=== PATIENT | male | born 1940 | race Caucasian/White ===

== ENCOUNTER 2018-02-09 08:26 | Emergency (ER) | END 2018-02-09 12:30 | disposition home or self-care (01) ==

== ENCOUNTER 2018-05-15 12:47 | Day surgery (SDC) | END 2018-05-15 18:33 ==

== ENCOUNTER 2018-07-22 16:43 | Inpatient (IN) | payer OTHER ==
[~2018-07-22] VITALS: Ht 180.3 cm; Wt 84.8 kg
[~2018-07-22 16:43] MED LIST: ACET325S GTB; ALLO300T2 GTB; AMIO200T4 GTB; ATOR40TA68 GTB; CARAS GTB; DIL4I IV; EPO10ESRD SC; INSU100V3 IJ; LANS30CA47 GTB; LEVA1.25 INHALATION; NYST1POW22 TOPICAL; ONDA4SOL IV*; POTA20LI15 GTB; SACC250C GTB; TAMS0.4C2 GTB; THEO80EL4 GTB; VORI200T9 GTB; [UNRECOGNIZED DRUG - CODE] TP
[2018-07-22] MEDS ORDERED: ALBUTEROL 0.5% (NEB) 2.5 MG/0.5 ML AMP INH STA (17:40)
[2018-07-22] MEDS ORDERED: VANCOMYCIN 1 GM (PMX) 250 ML IVPB STA (18:35)
[2018-07-22] MEDS ORDERED: CEFEPIME 1GM/50 ML (PMX) 50 ML IVPB STA (18:35)
--- NOTE | 2018-07-22 19:51 | ERD ---
ER Documentation Chief Complaint Chief Complaint PT SENT FROM [facility] FOR LAB WORK. HPI This is a 77-year-old male sent from [facility] for lab work. Apparently, the patient has an elevated white blood count there today of 15.8 with a left- sided pleural effusion that the doctor there wants sent here for workup, admiss ion, drainage of pleural fluid. Patient tells me does not know why he is here other than having a high white blood count. The patient has a tracheostomy with COPD with multiple episodes of pneumonia. He says he has had a chronic cough that does not seem to be much worse. No chills or fevers that he knows of. No shortness of breath. No chest pain.. The is here now and states that he said 2 days where he has had bizarre behavior of hallucinations lasting about a minute or 2 with bizarre behavior, then he returns to normal baseline ROS All systems reviewed and are negative except as per history of present illness. Medications Home Meds Reported Medications Insulin Regular, Human (Humulin R) 100 Unit/1 Ml Vial, 0 IJ Q6, VIAL 0-120 = 0 UNITS 121-150 = 0 UNITS 151-200 = 2 UNITS 201-250 = 4 UNITS 251-300 = 6 UNITS 301-350 = 8 UNITS 351-400 =10 UNITS ABOVE 400 GIVE 12 UNITS AND CALL 05/15/18 Hydromorphone Hcl* (Dilaudid* Inj) 4 Mg/Ml Soln, 0.5 MG IV Q4H PRN for PAIN, EA 05/15/18 Epoetin Raghavendra (Epogen) 10,000 Units/Ml Soln, 76088 UNITS SC MONWEDFRI, VIAL 05/15/18 Atorvastatin* (Atorvastatin*) 40 Mg Tablet, 40 MG GTB QHS, #30 TAB 05/15/18 Amiodarone Hcl* (Amiodarone Hcl*) 200 Mg Tablet, 200 MG GTB BID, #60 TAB 05/15/18 Allopurinol* (Allopurinol*) 300 Mg Tablet, 300 MG GTB DAILY, TAB 05/15/18 Acetaminophen* (Acetaminophen* Susp) 325 Mg/10.15 Ml Solution, 650 MG GTB Q6 PRN for ELEVATED TEMPERATURE, ML 05/15/18 Lansoprazole* (Prevacid*) 30 Mg Capsule., 30 MG GTB DAILY, CAP 05/15/18 Levalbuterol Hcl* (Levalbuterol Hcl*) 1.25 Mg/0.5 Ml Vial.neb, 1.25 MG INHALATION Q2H PRN for WHEEZING AND SOB, VIAL 05/15/18 Levalbuterol Hcl* (Levalbuterol Hcl*) 1.25 Mg/0.5 Ml Vial.neb, 1.25 MG INHALATION Q6 PRN for WHEEZING AND SOB, VIAL 05/15/18 Miconazole Nitrate (Critic-Aid) 57 Gm Oint..gm., 57 GM TP PRN 05/15/18 Nystatin (Nystatin Powder) 1 Each Powder.ea., 1 APPLIC TOPICAL BID, #1 BOTTLE 05/15/18 Ondansetron Hcl* (Ondansetron Hcl* Liq) 4 Mg/5 Ml Solution, 4 MG IV* Q6H PRN for NAUSEA AND/OR VOMITING, ML 05/15/18 Potassium Chloride* (Potassium Chloride*) 20 Meq/15 Ml Liquid, 40 MEQ GTB DAILY, ML 05/15/18 Saccharomyces Boulardii* (Florastor*) 250 Mg Cap, 250 MG GTB BID, CAP 05/15/18 Sucralfate* (Carafate*) 1 Gm/10 Ml Susp, 1 GM GTB AC MEALS, EA 05/15/18 Tamsulosin Hcl* (Tamsulosin Hcl*) 0.4 Mg Cap.er.24h, 0.4 MG GTB HS, CAP 05/15/18 Theophylline Anhydrous (Theophylline Liq) 80 Mg/15 Ml Solution, 160 MG GTB Q12, ML 05/15/18 Voriconazole* (Voriconazole*) 200 Mg Tablet, 200 MG GTB BID, TAB 05/15/18 Allergies Allergies: Coded Allergies: dronedarone (Unverified Allergy, Unknown, 05/15/18) naproxen (Unverified Allergy, Unknown, 05/15/18) PMhx/Soc History of Surgery: Yes (trach/peg) Anesthesia Reaction: No Hx Neurological Disorder: No Hx Respiratory Disorders: Yes (RESP FAILURE,PNA,COPD) Hx Cardiac Disorders: Yes (AFIB,CAD,CHF,) Hx Psychiatric Problems: No Hx Miscellaneous Medical Probl: Yes (DM, BPH, DYPHAGIA ) Hx Alcohol Use: No Hx Substance Use: No Hx Tobacco Use: No Smoking Status: Former smoker FmHx Family History: No coronary disease Physical Exam Vitals Vital Signs Date Temp Pulse Resp B/P (MAP) Pulse Ox O2 O2 Flow FiO2 Time Delivery Rate 07/22/18 98 22 90 T Tube 3.0 18:38 07/22/18 87 17 99/55 (70) 93 Trach 17:39 Collar 07/22/18 98.6 82 15 100/74 96 17:13 (83) Physical Exam Const: Well-developed, well-nourished Head: Atraumatic, normocephalic Eyes: Normal Conjunctiva, PERRLA, EOMI, normal sclera, no nystagmus ENT: Normal External Ears, Nose and Mouth, moist mucus membranes. Neck: Full range of motion. No meningismus, no lymphadenopathy, trache ostomy intact. Resp: No increased work of breathing, decreased breath sounds left base Cardio: Regular rate and rhythm, no murmurs, S1 S2 present Abd: Soft, non tender x 4, non distended. Normal bowel sounds, no guarding or rebound, no pulsitile abdominal masses or bruits Skin: No petechiae or rashes, no ecchymosis , no maculopapular rash Back: No midline or flank tenderness Ext: No cyanosis, or edema, FROM x 4, normal inspection, neurovascularly intact x 4 Neur: Awake and alert, STR 5/5 x 4, sensation intact x 4, no focal findings, cerebellum intact Psych: Normal Mood and Affect Result Diagram: 07/22/18 1730 07/22/18 1730 Results 24 hrs Laboratory Tests Test 07/22/18 17:30 White Blood Count 13.8 10^3/ul Red Blood Count 3.66 10^6/ul Hemoglobin 10.6 g/dl Hematocrit 33.2 % Mean Corpuscular Volume 90.7 fl Mean Corpuscular Hemoglobin 29.0 pg Mean Corpuscular Hemoglobin Concent 31.9 g/dl Red Cell Distribution Width 16.6 % Platelet Count 234 10^3/UL Mean Platelet Volume 9.3 fl Immature Granulocytes % 1.200 % Neutrophils % 83.5 % Lymphocytes % 5.7 % Monocytes % 8.3 % Eosinophils % 0.9 % Basophils % 0.4 % Nucleated Red Blood Cells % 0.0 /100WBC Immature Granulocytes # 0.160 10^3/ul Neutrophils # 11.5 10^3/ul Lymphocytes # 0.8 10^3/ul Monocytes # 1.2 10^3/ul Eosinophils # 0.1 10^3/ul Basophils # 0.1 10^3/ul Nucleated Red Blood Cells # 0.0 10^3/ul Sodium Level 133 mmol/L Potassium Level 4.9 mmol/L Chloride Level 99 mmol/L Carbon Dioxide Level 27 mmol/L Anion Gap 7 Blood Urea Nitrogen 18 mg/dl Creatinine 1.20 mg/dl Est Glomerular Filtrat Rate mL/min mL/min Glucose Level 77 mg/dl Calcium Level 9.5 mg/dl Total Bilirubin 0.2 mg/dl Direct Bilirubin 0.00 mg/dl Indirect Bilirubin 0.2 mg/dl Aspartate Amino Transf (AST/SGOT) 27 IU/L Alanine Aminotransferase (ALT/SGPT) 49 IU/L Alkaline Phosphatase 90 IU/L Total Protein 4.7 g/dl Albumin 2.5 g/dl Globulin 2.20 g/dl Albumin/Globulin Ratio 1.13 Current Medications Medications Dose Sig/Emmanuel Start Time Status Last (Trade) Ordered Route PRN Stop Time Admin Dose Reason Admin Albuterol 10 mg ONCE STAT 07/22/18 DC 07/22/18 (Proventil INH 17:40 18:10 0.5% (Neb)) 07/22/18 17:42 Cefepime HCl 50 ml @ ONCE STAT 07/22/18 DC 07/22/18 100 mls/hr IVPB 18:35 19:15 07/22/18 19:04 Vancomycin 250 ml @ ONCE STAT 07/22/18 HCl 125 mls/hr IVPB 18:35 07/22/18 20:34 Procedures/MDM Ordering MD: MITZI BETH DO Location: E/R Room/Bed: PROCEDURE: XR Chest. CLINICAL INDICATION: Abdominal Pain TECHNIQUE: Single frontal view of the chest was obtained COMPARISON: Chest x-ray 06/03/2018 FINDINGS: Tracheostomy cannula remains in similar position, allowing for slight differences in projection. Left-sided central venous catheter terminates near the confluence of the left brachiocephalic vein with the superior vena cava, similar to prior study. The cardiac silhouette remains enlarged. Scattered bilateral interstitial opacities appear similar to prior study and may reflect persistent mild pulmonary edema. There is a small right pleural effusion, decrea sed compared to prior study. There is improved aeration at the right lung base. There is a moderate left pleural effusion, increased compared to prior study. Underlying left basilar consolidation cannot be excluded. No pneumothorax is detected. There is degenerative enthesopathy of the visualized spine. IMPRESSION: Scattered bilateral interstitial opacities, similar to prior study and possibly reflecting mild persistent pulmonary edema. Small right pleural effusion, decreased compared to prior study. Interval improved aeration at the right lung base. Moderate left pleural effusion, increased compared to prior study. Underlying consolidation/infectious process cannot be excluded. Left central venous catheter terminating near the confluence of the left brachiocephalic vein with the superior vena cava, similar prior study. Mildly enlarged cardiac silhouette, unchanged. RPTAT: PP Physician Benji Date Time Electronically viewed and signed by Sonny Arteaga Physician on 07/22/2018 18:05 RC/ CC: MITZI BETH DO [id number] The patient has a moderate size left pleural effusion which is increased from prior study. His white blood count is slightly elevated here, he may have an underlying infiltrate in the left base. The bizarre behavior for the past 2 days could be due to an infectious pneumonia there. I will draw blood cultures and given antibiotics and admit him for pneumonia therapy as well as interventional radiology drainage of the pleural fluid tomorrow. Patient is afebrile does not meet SIRS criteria for sepsis Departure Diagnosis: Primary Impression: Pleural effusion, left Condition: Stable MITZI BETH DO Jul 22, 2018 19:51
[2018-07-22] MEDS ORDERED: SOD CHLORIDE 0.9% 1,000 ML IV SCH (20:13)
[2018-07-22] MEDS ORDERED: ONDANSETRON 4 MG INJ IV PRN (20:30)
[2018-07-22] MEDS ORDERED: ACETAMINOPHEN 325 MG TAB PO PRN (20:30)
[2018-07-22 21:00] VITALS: BP 116/58; PULSE 87; RESP 17
[2018-07-22 21:08] VITALS: PULSE 93
[2018-07-22 21:20] VITALS: Ht 180.3 cm; Wt 84.8 kg
[2018-07-22] MEDS ORDERED: LORA-441 PO (22:45)
[2018-07-22] MEDS ORDERED: INSU100C SQ (22:45)
[2018-07-22] MEDS ORDERED: LOPE-123 PO (22:58)
[2018-07-22] MEDS ORDERED: LORA10CA9 PO (22:58)
[2018-07-22] MEDS ORDERED: APIX5TAB PO (22:58)
[2018-07-22] MEDS ORDERED: MAGN400T28 PO (22:58)
[2018-07-22] MEDS ORDERED: TRAM50TA2 PO (22:58)
[2018-07-22] MEDS ORDERED: ONDA4TAB95 PO (22:58)
[2018-07-22] MEDS ORDERED: PARO-2 PO (22:58)
[2018-07-22] MEDS ORDERED: HYDR-4011 PO (22:58)
[2018-07-22] MEDS ORDERED: LACTINEX PO (22:58)
--- NOTE | 2018-07-22 23:10 | NUR ---
Nursing Note: Called Dr. Elena. Per no diet orders at this time. Notified MD that pt is diabetic and would like to use his passy elmira valve. New order for moderate sliding scale and per mD, pt can use valve if approved by speech or respiratory. Per MD he will place orders when he sees the patient. Will continue to monitor.
[2018-07-22] MEDS: INSULIN ASPART [NOVOLOG] 3 ML PEN SC SCH (23:30)
[2018-07-22 23:33] VITALS: BP 103/53; PULSE 91; RESP 18
[2018-07-22] MEDS ORDERED: DEXTROSE 50% 50 ML SYRINGE IV PRN (23:45)
[2018-07-22] MEDS ORDERED: GLUCAGON 1 MG INJ IM PRN (23:45)
[2018-07-22] MEDS ORDERED: GLUCOSE GEL 15 GRAM TUBE PO PRN ×2 (23:45)
[2018-07-22] MEDS ORDERED: GLUCOSE GEL 15 GRAM TUBE BUCCAL PRN (23:45)
[2018-07-23] VITALS (10 sets, daily range): BP systolic 96–107; BP diastolic 54–69; PULSE 81–104; RESP 17–20
--- NOTE | 2018-07-23 00:20 | QN ---
Documentation Comment H&P dict a/p 1. pulm: chronic resp failure, with trach, to t piece, cont O2 supplement (patient states that when O2 drops he has hallucinations?) (b) ?pneumonia, check CT (c) acinetobacter colonization, doubt active infection (d) PMV if cleared by speech 2. cards: chf, give lasix x1 9b) a fib, cont eliquis, check echo 3. renal: prior HD but none for several months, renal consult and anticipate remove HD catheter 4. gi: anticipate speech clearance for diet, soon to remove g tube 5. leukocytosis, NOS at this time i DO NOT suspect active infection, will observe off abx JOSEPH RIBEIRO MD Jul 23, 2018 00:20
[2018-07-23] MEDS ORDERED: FUROSEMIDE 40 MG INJ IV ONE (00:30)
[2018-07-23] MEDS ORDERED: ACETAMINOPHEN 650MG/20.3ML CUP GTB PRN (00:30)
[2018-07-23] MEDS ORDERED: LEVALBUTEROL (NEB) 1.25 MG/0.5 ML AMP HHN PRN (00:30)
[2018-07-23] MEDS: DEXTROSE 50% 50 ML SYRINGE IV PRN ×3 (00:54→12:28)
[2018-07-23] MEDS: ACCU-CHEK XX SCH (02:00)
[2018-07-23] MEDS: IPRATROPIUM (NEB) 0.5 MG/2.5 ML AMP HHN SCH ×4 (02:09→20:34)
[2018-07-23] MEDS: LEVALBUTEROL (NEB) 1.25 MG/0.5 ML AMP HHN SCH ×4 (02:09→20:34)
[2018-07-23] MEDS ORDERED: IOHEXOL 300MG/ML 150 ML BTL ONE (02:41)
[2018-07-23] MEDS ORDERED: SOD CHLORIDE 0.9% 100 ML ONE (02:41)
--- NOTE | 2018-07-23 04:20 | NUR ---
Nursing Note: Radiologist read CTA Chest and called saying that she sees a mass on pt's right lung. Notified Dr. Alonso. Also notified MD of pt's hypoglycemic episode and that pt is currently running NS. Per MD no changes to fluids. Also clarified whether MD wants pt to stay NPO until speech eval. Per MD, keep pt NPO except meds. Will continue to monitor.
--- NOTE | 2018-07-23 05:03 | HP ---
DATE OF ADMISSION: 07/22/2018 CHIEF COMPLAINT: Leukocytosis. HISTORY OF PRESENTING ILLNESS: Mr. Stafford is referred to the emergency room at [facility] by his subacute facility for increasing white blood cell count. According to the labs which acco mpany the patient, he had a blood count on the morning of admission which revealed a leukocytosis to 15,600. He apparently according to the limited documentation available has been having some mental s tatus changes and hallucinations associated with this. The patient states that he has been in the [facility] for some time related to pneumonia and renal failure. PAST MEDICAL HISTORY: Significant for: 1. Congestive heart failure. 2. Atrial fibrillation. 3. Acute renal failure requiring dialysis; however, no dialysis in the last several months. 4. Benign prostatic hypertrophy. 5. Major depression. 6. Likely colonization of acinetobacter in the sputum. MEDICATIONS OUTPATIENT: Include: 1. Tylenol as needed. 2. Amiodarone 200 mg b.i.d. 3. Ativan as needed. 4. Lipitor 40 mg daily. 5. Eliquis 5 mg b.i.d. 6. Florastor. 7. Xopenex. 8. Prevacid. 9. Claritin. 10. Paxil 20 mg daily. 11. Zofran as needed. 12. Carafate. 13. Flomax. ALLERGIES: 1. NAPROXEN. 2. DRONEDARONE. SOCIAL HISTORY: The patient has been staying in wound care center. Has been previously on the venti lator, but currently on T-piece. FAMILY HISTORY: Noncontributory. REVIEW OF SYSTEMS: Five systems reviewed and found not to be revealing. PHYSICAL EXAMINATION: VITAL SIGNS: Blood pressure is 103/53, pulse rate 91, respirations 18, temperature is 98.2, saturati ng 97% on 5 liters via T-tube. GENERAL: Pleasant man, tracheostomy in situ, awake, alert, responding to questions. HEENT: Normocephalic, atraumatic without evident scleral icterus, perioral cyanosis. Mucous membran es are moist. NECK: Soft and supple without masses. No evidence of jugular venous distention or carotid bruits. CHEST: Clear to auscultation and percussion bilaterally. HEART: Regular rate and rhythm, S1-S2, no added sounds. ABDOMEN: Soft, nontender, nondistended without palpable hepatosplenomegaly. Note is made of a gastr ostomy tube as well as a left subclavian tunneled hemodialysis catheter. EXTREMITIES: Without clubbing, cyanosis or edema. SKIN: Without rashes. NEUROLOGIC: Grossly intact. LABORATORY STUDIES: Reveal a hemoglobin of 10.6 g/dL, white count of 13,800, platelets of 234,000. Sodium is 133, potassium 4.9, chloride 99, bicarbonate 27, BUN 18, creatinine 1.2, glucose 77. Liver function tests are unremarkable. UA is negative for signs of infection. IMAGING: Chest x-ray is read as possible interstitial opacities representing mild persistent pulmona ry edema. Report on radiology shows moderate left pleural effusion. However on my review of the edilia ge, I cannot see any left pleural effusion. ASSESSMENT AND PLAN: 1. Pulmonary: The patient with hypoxemic respiratory failure, unclear etiology, though I suspect th is is related to congestive heart failure and interstitial opacities as mentioned. We will plan to g maris diuresis and see if this improves the situation. We will obtain CT scan of chest to rule out pul monary embolism. Consider pneumonia, though I feel this is less likely. Review CT scan for possible pleural effusion, so at this point in time, I would favor these to be more transudative related to h eart failure than inflammatory in nature. I am not currently recommending a thoracentesis. 2. Cardiac: Hypoxemic respiratory failure. I feel this is most likely related to congestive heart failure type picture with interstitial opacities as mentioned in chest x-ray. Begin diuresis and obs erve for improvement. 3. Atrial fibrillation, rate controlled. Continue Eliquis. We will plan to obtain echocardiogram f or further evaluation. 4. Probable acinetobacter colonization. Continue to monitor. No evidence at this point in time of actual lower respiratory tract infection in spite of elevated white blood cell count. 5. Renal: The patient with acute renal failure requiring hemodialysis; however now off dialysis. W e will plan to obtain renal consultation in anticipation of removal of hemodialysis catheter. 6. Leukocytosis, unclear etiology. I do not favor at this point in time acute infection. We will p lavelle not to treat with any antibiotics but rather to observe this. Consider sacral decubitus as poten tial etiology as well as numerous indwelling devices, which are likely to be removed in the near term future. Consider also medications especially with erythropoietin as potential etiologies for leukoc ytosis. 7. Alteration of mental status, probably related to hypoxemia the way the patient reports, however, we will continue to monitor at this point in time. We plan to withdraw Ativan and Paxil especially a s potential etiologies for this. Dictated By: JOSEPH RIBEIRO MD RER/NTS Conf#: [id number] DID#: [id number] CC: KARON FERRIS MD;*End*
[2018-07-23] MEDS: SUCRALFATE (100 MG/ML) 10ML CUP GTB SCH ×3 (06:32→17:34)
--- NOTE | 2018-07-23 07:00 | NUR ---
EOSS: Pt resting comfortably in stable condition. Pt a/o X3 and trach to mist. VS stable. Will endorse to oncoming RN.
[2018-07-23] MEDS ORDERED: INSULIN ASPART [NOVOLOG] 3 ML PEN SC SCH (07:55)
[2018-07-23] MEDS: INSULIN ASPART [NOVOLOG] 3 ML PEN SC SCH ×4 (07:55→20:48)
[2018-07-23] MEDS: LANSOPRAZOLE 30 MG CAP GTB SCH (08:22)
[2018-07-23] MEDS: MAGNESIUM OXIDE 400 MG TAB PO SCH ×3 (08:22→20:48)
[2018-07-23] MEDS: APIXABAN 5 MG TABLET PO SCH ×2 (08:22→20:48)
[2018-07-23] MEDS: AMIODARONE 200 MG TAB GTB SCH ×2 (08:22→20:48)
[2018-07-23] MEDS: LACTOBACILLUS RHAMNOSUS CAP PO SCH ×2 (08:22→20:48)
[2018-07-23] MEDS: LEVOFLOXACIN 500MG/D5W (PMX) 100 ML IVPB SCH (09:30)
--- NOTE | 2018-07-23 12:24 | RADRPT ---
Echocardiogram Report Patient Name: GERHARD MCDONALD Gender: Male Date: 1940 Study Date: 23-Jul-2018 Paving Supervisor: Douglas Angel RDCS Location: 530-A Ref. Physician: JOSEPH RIBEIRO Quality: Technically Difficult Study Procedures: Transthoracic echocardiogram with complete 2D, M-Mode, and doppler examination. Indications: Atrial Fibrillation. 2D/M Mode Doppler Measurement Value Normal Ranges Measurement Value Normal Ranges LVIDd 2D 4.8 3.5 - 5.6 cm AV Peak Kareem 1.3 m/sec LVIDs 2D 3.7 2.1 - 4.1 cm AV Peak PG 7.0 mmHg FS 2D 22.2 % LVOT Peak Kareem 0.7 m/sec LVPWd 2D 1.4 0.6 - 1.1 cm LVOT Peak PG 2.0 mmHg IVSd 2D 0.8 0.6 - 1.1 cm MV E Peak Kareem 1.1 m/sec IVS/LVPW 2D 0.6 MV A Peak Kareem 0.3 m/sec AoR Diam 2D 2.5 2.0 - 3.7 cm MV E/A 3.3 LA/Ao 2D 2 0 - 1 MV Decel Time 155 msec EDV 2D 109.0 cm3 MV E/A 3.3 ESV 2D 51.1 cm3 TR Peak Kareem 3.0 m/sec LA Dimen 2D 4.4 2.3 - 4.0 cm TR Peak PG 37.0 mmHg RVSP 37.0 mmHg Findings Left Ventricle: Overall, mildly diminished left ventricular systolic function. Not all segments visualized. Normal left ventricular cavity size. Normal left ventricular wall thickness. Ejection fraction is visually estimated at 45 %. Right Ventricle: Normal right ventricular size. Normal right ventricular systolic function. Left Atrium: There is mild enlargement of left atrium. Right Atrium: There is mild enlargement of right atrium. Mitral Valve: Normal appearance of the mitral valve. Mild mitral valve regurgitation. Aortic Valve: Normal appearance of the aortic valve. No significant aortic stenosis or insufficiency. Tricuspid Valve: Normal appearance of the tricuspid valve. There is mild to moderate tricuspid regurgitation. Pulmonic Valve: Normal pulmonic valve appearance. No evidence of pulmonic regurgitation. Pericardium: Normal pericardium with no significant pericardial effusion. Aorta: Normal aortic root. IVC: The IVC is not well visualized. Conclusions Overall, mildly diminished left ventricular systolic function. Not all segments visualized. Normal left ventricular cavity size. Normal left ventricular wall thickness. Ejection fraction is visually estimated at 45 %. Normal right ventricular size. Normal right ventricular systolic function. There is mild enlargement of left atrium. There is mild enlargement of right atrium. Mild mitral valve regurgitation. No significant aortic stenosis or insufficiency. There is mild to moderate tricuspid regurgitation. Normal pericardium with no significant pericardial effusion. Electronically Signed By: Asif Alcaraz 23-Jul-2018 12:22:57 -0800 Patient Name: GERHARD MCDONALD Study Date: 23-Jul-2018 [id number]
--- NOTE | 2018-07-23 13:11 | PN ---
Date/Time of Note Date/Time of Note DATE: 07/23/18 TIME: 13:11 Assessment/Plan VTE Prophylaxis Risk score (from Ns)>0 risk: 10 SCD applied (from Ns): Yes Pharmacological prophylaxis: apixaban Lines/Catheters IV [facility] (from [facility] Peripheral IV (permacath) Urinary Cath still in place: No Assessment/Plan Assessment/Plan 1. acute hypoxemic respiratory faliure possible due to PNA 2. AMS due to PNA and hypoxemia 3. Atrial fibrillation rate controlled 4. Leucocytosis 5. Probable Acinetobacter infection 6. 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 BPH on Flomax Plan: IV abx levaquin to cover for PNA IV lasix 20mg BID for diuresis Rate control with Amiodarone, eliquis for anticoagulation AMS improving pt has left subclavina HD cathter and he has been off HD for few months, due to concern about infection, we will remove permacath in hospital by IR- ordered for tomorrow will follow up Result Diagram: 07/23/18 0504 07/23/18 0504 Results 24hrs Laboratory Tests Test 07/22/18 17:30 07/22/18 20:08 07/22/18 20:34 07/23/18 00:49 White Blood Count 13.8 #H Red Blood Count 3.66 #L Hemoglobin 10.6 #L Hematocrit 33.2 #L Mean Corpuscular 90.7 Volume Mean Corpuscular 29.0 Hemoglobin Mean Corpuscular 31.9 L Hemoglobin Concent Red Cell 16.6 H Distribution Width Platelet Count 234 # Mean Platelet 9.3 Volume Immature 1.200 H Granulocytes % Neutrophils % 83.5 H Lymphocytes % 5.7 L Monocytes % 8.3 Eosinophils % 0.9 Basophils % 0.4 Nucleated Red 0.0 Blood Cells % Immature 0.160 H Granulocytes # Neutrophils # 11.5 H Lymphocytes # 0.8 Monocytes # 1.2 H Eosinophils # 0.1 Basophils # 0.1 Nucleated Red 0.0 Blood Cells # Sodium Level 133 L Potassium Level 4.9 Chloride Level 99 Carbon Dioxide 27 Level Anion Gap 7 Blood Urea 18 Nitrogen Creatinine 1.20 Est Glomerular Filtrat Rate mL/min Glucose Level 77 Calcium Level 9.5 Total Bilirubin 0.2 Direct Bilirubin 0.00 Indirect Bilirubin 0.2 Aspartate Amino 27 Transf (AST/SGOT) Alanine 49 Aminotransferase ( ALT/SGPT) Alkaline 90 Phosphatase Total Protein 4.7 L Albumin 2.5 L Globulin 2.20 Albumin/Globulin 1.13 Ratio POC Venous Lactate 1.3 Urine Color YELLOW Urine Clarity CLEAR Urine pH 6.0 Urine Specific 1.008 [place] Urine Ketones NEGATIVE Urine Nitrite NEGATIVE Urine Bilirubin NEGATIVE Urine Urobilinogen NEGATIVE Urine Leukocyte NEGATIVE Esterase Urine Hemoglobin NEGATIVE Urine Glucose NEGATIVE Urine Total NEGATIVE Protein Bedside Glucose 64 L Test 07/23/18 01:16 07/23/18 01:32 07/23/18 02:10 07/23/18 05:04 Bedside Glucose 107 87 81 White Blood Count 12.5 H Red Blood Count 3.56 L Hemoglobin 10.3 L Hematocrit 31.8 L Mean Corpuscular 89.3 Volume Mean Corpuscular 28.9 L Hemoglobin Mean Corpuscular 32.4 Hemoglobin Concent Red Cell 17.2 H Distribution Width Platelet Count 228 Mean Platelet 9.7 Volume Immature 1.000 H Granulocytes % Neutrophils % 86.1 H Lymphocytes % 4.6 L Monocytes % 7.3 Eosinophils % 0.7 Basophils % 0.3 Nucleated Red 0.0 Blood Cells % Immature 0.120 H Granulocytes # Neutrophils # 10.8 H Lymphocytes # 0.6 L Monocytes # 0.9 Eosinophils # 0.1 Basophils # 0.0 Nucleated Red 0.0 Blood Cells # Sodium Level 133 L Potassium Level 4.5 Chloride Level 101 Carbon Dioxide 27 Level Anion Gap 5 Blood Urea 16 Nitrogen Creatinine 1.27 H Est Glomerular Filtrat Rate mL/min Glucose Level 54 #L Calcium Level 9.4 Test 07/23/18 08:16 07/23/18 09:09 07/23/18 12:24 Bedside Glucose 60 L 103 69 L Subjective 24 Hr Interval Summary Free Text/Dictation more stable, less SOB, plan for HD catheter removal tomorrow Exam/Review of Systems Vital Signs Vitals Vital Signs Date Temp Pulse Resp B/P (MAP) Pulse Ox O2 O2 Flow FiO2 Time Delivery Rate 07/23/18 98.4 95 17 96/66 (76) 90 12:15 07/23/18 5.0 28 10:38 07/23/18 Aerosol 10:37 Intake and Output 07/22/18 07/22/18 07/23/18 1414:59 22:59 06:59 IntakeIntake Total 480 ml BalanceBalance 480 ml Exam GENERAL: Pleasant man, tracheostomy in situ, awake, alert, responding to questions. HEENT: Normocephalic, atraumatic without evident scleral icterus, perioral cya nosis. Mucous membranes are moist. NECK: Soft and supple without masses. No evidence of jugular venous distention or carotid bruits. CHEST: Clear to auscultation and percussion bilaterally. HEART: Regular rate and rhythm, S1-S2, no added sounds. ABDOMEN: Soft, nontender, nondistended without palpable hepatosplenomegaly. Note is made of a gastrostomy tube as well as a left subclavian tunneled hemodialysis catheter. EXTREMITIES: Without clubbing, cyanosis or edema. SKIN: Without rashes. NEUROLOGIC: Grossly intact. Medications Medications Current Medications Ondansetron HCl (Zofran Inj) 4 mg ER BRIDGE PRN IV NAUSEA AND/OR VOMITING; Start 07/22/18 at 20:30; Stop 07/23/18 at 20:29 Acetaminophen (Tylenol Tab) 650 mg ER BRIDGE PRN PO MILD PAIN(1-3)OR ELEVATED TEMP; Start 07/22/18 at 20:30; Stop 07/23/18 at 20:29 Diagnostic Test (Pha) (Accu-Chek) 1 ea 02 XX ; Start 07/23/18 at 02:00 Insulin Aspart (Novolog Insulin Pen) NOVOLOG *MODERATE* ALGORITHM WITH MEALS BEDTIME SC ; Start 07/22/18 at 23:30 Miscellaneous Information 1 ea NOTE XX ; Start 07/22/18 at 23:45 Glucose (Glutose) 15 gm Q15M PRN PO DECREASED GLUCOSE; Start 07/22/18 at 23:45 Glucose (Glutose) 22.5 gm Q15M PRN PO DECREASED GLUCOSE; Start 07/22/18 at 23:45 Dextrose (D50w Syringe) 25 ml Q15M PRN IV DECREASED GLUCOSE Last administered on 07/23/18at 12:28; Admin Dose 25 ML; Start 07/22/18 at 23:45 Dextrose (D50w Syringe) 50 ml Q15M PRN IV DECREASED GLUCOSE; Start 07/22/18 at 23:45 Glucagon (Glucagen) 1 mg Q15M PRN IM DECREASED GLUCOSE; Start 07/22/18 at 23:45 Glucose (Glutose) 15 gm Q15M PRN BUCCAL DECREASED GLUCOSE; Start 07/22/18 at 23:45 Acetaminophen (Tylenol Liquid) 650 mg Q6 PRN GTB ELEVATED TEMPERATURE; Start 07/23/18 at 00:30 Amiodarone HCl (Cordarone) 200 mg BID GTB Last administered on 07/23/18at 08:22; Admin Dose 200 MG; Start 07/23/18 at 09:00 Apixaban (Eliquis) 5 mg BID PO Last administered on 07/23/18at 08:22; Admin Dose 5 MG; Start 07/23/18 at 09:00 Atorvastatin Calcium (Lipitor) 40 mg QHS GTB ; Start 07/23/18 at 21:00 Lansoprazole (Prevacid) 30 mg DAILY GTB Last administered on 07/23/18at 08:22; Admin Dose 30 MG; Start 07/23/18 at 09:00 Levalbuterol (Xopenex Neb) 1.25 mg Q2H RESP THERAPY PRN HHN WHEEZING AND SOB; Start 07/23/18 at 00:30 Magnesium Oxide (Mag-Ox 400) 400 mg TID PO Last administered on 07/23/18at 12:28; Admin Dose 400 MG; Start 07/23/18 at 09:00 Sucralfate (Carafate Susp) 1 gm AC MEALS GTB Last administered on 07/23/18at 12:28; Admin Dose 1 GM; Start 07/23/18 at 07:25 Tamsulosin HCl (Flomax) 0.4 mg HS PO ; Start 07/23/18 at 21:00 Lactobacillus Acidophilus/ Rhamnosus (Culturelle) 1 cap BID PO Last administered on 07/23/18at 08:22; Admin Dose 1 CAP; Start 07/23/18 at 09:00 Ipratropium [place] (Atrovent 0.02% (Neb)) 0.5 mg Q6H RESP THERAPY HHN Last administered on 07/23/18 10:31; Admin Dose 0.5 MG; Start 07/23/18 at 02:00 Levalbuterol (Xopenex Neb) 1.25 mg Q6H RESP THERAPY HHN Last administered on 07/23/18at 10:32; Admin Dose 1.25 MG; Start 07/23/18 at 02:00 Levofloxacin/ Dextrose 100 ml @ 100 mls/hr Q24H IVPB Last administered on 07/23/18at 09:30; Admin Dose 100 MLS/HR; Start 07/23/18 at 09:00 LULU MUNOZ MD Jul 23, 2018 13:11
--- NOTE | 2018-07-23 16:04 | NUR ---
NUTRITION CONSULT: PATIENT NPO, HAS G-TUBE. CONSIDER START WITH ISOSOURCE HN @ 30 ML/HR , INCREASE BY 10 ML/ Q 4 HOURS TO 60 ML/HR TO PROVIDE 1728 tyler 77 gm. prot/ 1176 ML FREE WATER. WATER FLUSHES 30 - 50 ML Q 6 HOURS OR PER MD. ADD VITAMIN 500 MG, ZN S04 220 MG ONE TAB PER DAY X 14 DAYS FOR WOUND HEALING.
[2018-07-23] MEDS: FUROSEMIDE 20 MG INJ IV SCH (17:34)
--- NOTE | 2018-07-23 18:56 | NUR ---
END OF SHIFT REPORT: Patient continues to be confused with hallucination. VSS but hypoglycemic twice. Resolved with D50 IVP. Continues to be NPO pending Speech eval. updated with medical plan of care and is agreeable although concerned that the confusion is still very pronounced.
[2018-07-23] MEDS: TAMSULOSIN (SR) 0.4 MG CAP PO SCH (20:48)
[2018-07-23] MEDS: ATORVASTATIN 40 MG TAB GTB SCH (20:48)
[2018-07-24] VITALS (14 sets, daily range): BP systolic 100–109; BP diastolic 56–90; PULSE 79–158; RESP 18–20
--- NOTE | 2018-07-24 00:40 | NUR ---
Nursing Note: Notified Dr. Garvey that pt is currently NPO except meds until speech therapist sees him and he has had hypoglycemic episodes throughout the day. New order for D5 1/2 NS @ 50 cc/hr until speech sees him. Will follow order and continue to monitor.
[2018-07-24] MEDS: IPRATROPIUM (NEB) 0.5 MG/2.5 ML AMP HHN SCH ×3 (01:08→19:56)
[2018-07-24] MEDS: LEVALBUTEROL (NEB) 1.25 MG/0.5 ML AMP HHN SCH ×3 (01:08→19:55)
[2018-07-24] MEDS: DEXTROSE 5%-0.45% NACL 1,000 ML IV SCH ×2 (01:24→20:39)
[2018-07-24] MEDS: ACCU-CHEK XX SCH (02:00)
[2018-07-24] MEDS: FUROSEMIDE 20 MG INJ IV SCH ×2 (05:42→18:11)
[2018-07-24] MEDS: SUCRALFATE (100 MG/ML) 10ML CUP GTB SCH ×3 (06:38→18:00)
--- NOTE | 2018-07-24 07:00 | NUR ---
EOSS: Pt resting comfortably in stable condition. Pt a/o X3 and trach to mist. VS stable. Will endorse to oncoming RN.
[2018-07-24] MEDS: INSULIN ASPART [NOVOLOG] 3 ML PEN SC SCH ×4 (07:55→20:56)
[2018-07-24] MEDS: LACTOBACILLUS RHAMNOSUS CAP PO SCH ×2 (10:09→20:31)
[2018-07-24] MEDS: APIXABAN 5 MG TABLET PO SCH ×2 (10:09→20:31)
[2018-07-24] MEDS: LANSOPRAZOLE 30 MG CAP GTB SCH (10:09)
[2018-07-24] MEDS: MAGNESIUM OXIDE 400 MG TAB PO SCH ×3 (10:10→20:32)
[2018-07-24] MEDS: AMIODARONE 200 MG TAB GTB SCH ×2 (10:10→20:32)
[2018-07-24] MEDS: LEVOFLOXACIN 500MG/D5W (PMX) 100 ML IVPB SCH (10:11)
--- NOTE | 2018-07-24 12:11 | NUR ---
Bedside swallow evaluation completed: Patient is a 77 y/o male who presented to [facility] with AMS and increasing WBC count. He is currently being treated for hypoxemic respiratory failure, of unclear etiology, CHF, atrial fibrillation, probable acinetobacter colonization, acute renal failure, and Leukocytosis. He has a trach with PMV in place, on 5L cool mist. Sleeping on arrival, but easily aroused. Participatory in basic conversation and able to follow instructions. Upper dentition present. Per patient, spouse and SNF therapist, patient was most recently on a regular diet with thin liquids for the past three weeks. Prior to upgrade he was on mech soft, and puree. Patient does have PEG in place. He is currently NPO and is not receiving tube feedings. Oral mech: Face symmetrical, tongue at midline. WFL oral motor strength and coordination. Moderately reduced hyolaryngeal excursion, per palpation. Reduced breath support and vocal intensity. Trials: Ice chips, ntl via tsp and cup (4 oz), pureed solids (full pudding cup) Patient demonstrates adequate bolus prep. Suspect mild premature spillage from oral cavity with NTL and thin liquid from ice. Timely initiation of the pharyngeal swallow. Repeat swallows noted with all consistencies, suspect pharygneal residue. No overt s/s aspiration. Vocal quality remained dry throughout evaluation. Patient does however, have hx silent aspiration as noted on MBS (05/31/18). Pureed solids noted in suctioning at end of session, suggestive of silent aspiration of pureed solids. NTL not noted in suctioning, however patient is high risk for aspiration with this consistency as well. He did silently aspirate liquids on previous video. Provided education to patient, spouse and RN. MD notified regarding results. Patient not safe to resume PO diet at this time. May benefit from repeat MBS to r/o cont. aspiration and determine LRD. Recommendations NPO with ice chips or thin water for oral gratification only May want to consider restarting tube feedings - will benefit from RD f/u Meds NPO Strict aspiration precautions and oral care guidelines ST to f/u
--- NOTE | 2018-07-24 12:41 | PN ---
Date/Time of Note Date/Time of Note DATE: 07/24/18 TIME: 12:41 Assessment/Plan VTE Prophylaxis Risk score (from Ns)>0 risk: 10 SCD applied (from Ns): Yes Pharmacological prophylaxis: heparin Lines/Catheters IV [facility] (from [facility]): Permacath Central line still needed: No (Plan is to remove it today ) Urinary Cath still in place: No Assessment/Plan Assessment/Plan 1. acute hypoxemic respiratory faliure possible due to PNA 2. AMS due to PNA and hypoxemia 3. Atrial fibrillation rate controlled 4. Leucocytosis 5. Probable Acinetobacter infection 6. 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 BPH on Flomax Plan: IV abx levaquin to cover for PNA IV lasix 20mg BID for diuresis Rate control with Amiodarone, eliquis for anticoagulation pt has left subclavina HD cathter and he has been off HD for few months, due to concern about infection, we will remove permacath in hospital by IR- ordered for today will follow up Result Diagram: 07/24/18 0511 07/24/18 0511 Results 24hrs Laboratory Tests Test 07/23/18 13:33 07/23/18 17:28 07/23/18 20:43 07/24/18 02:49 Bedside Glucose 118 72 74 83 Test 07/24/18 05:11 07/24/18 08:12 07/24/18 11:38 White Blood Count 9.5 # Red Blood Count 3.50 L Hemoglobin 10.1 L Hematocrit 32.5 L Mean Corpuscular Volume 92.9 Mean Corpuscular 28.9 L Hemoglobin Mean Corpuscular 31.1 L Hemoglobin Concent Red Cell Distribution 17.2 H Width Platelet Count 215 Mean Platelet Volume 9.5 Immature Granulocytes % 1.200 H Neutrophils % 80.1 H Lymphocytes % 6.2 L Monocytes % 10.3 Eosinophils % 1.6 Basophils % 0.6 Nucleated Red Blood 0.0 Cells % Immature Granulocytes # 0.110 H Neutrophils # 7.6 H Lymphocytes # 0.6 L Monocytes # 1.0 H Eosinophils # 0.2 Basophils # 0.1 Nucleated Red Blood 0.0 Cells # Prothrombin Time 18.1 H Prothrombin Time Ratio 1.4 INR International 1.49 Normalized Ratio Activated 35.6 H Partial Thromboplast Time Sodium Level 136 Potassium Level 4.2 Chloride Level 104 Carbon Dioxide Level 27 Anion Gap 5 Blood Urea Nitrogen 12 Creatinine 1.18 Est Glomerular Filtrat Rate mL/min Glucose Level 70 Calcium Level 9.4 Total Bilirubin 0.1 L Direct Bilirubin 0.00 Indirect Bilirubin 0.1 Aspartate Amino 25 Transf (AST/SGOT) Alanine 43 Aminotransferase (ALT/SG PT) Alkaline Phosphatase 81 Total Protein 4.6 L Albumin 2.4 L Globulin 2.20 Albumin/Globulin Ratio 1.09 Bedside Glucose 79 89 Exam/Review of Systems Vital Signs Vitals Vital Signs Date Temp Pulse Resp B/P (MAP) Pulse Ox O2 O2 Flow FiO2 Time Delivery Rate 07/24/18 83 12:34 07/24/18 20 96 Aerosol 5.0 28 11:57 07/24/18 97.4 102/57 11:11 (72) Intake and Output 07/23/18 07/23/18 07/24/18 1515:00 23:00 07:00 IntakeIntake Total 200 ml OutputOutput Total 550 ml BalanceBalance 200 ml -550 ml Exam GENERAL: Pleasant man, tracheostomy in situ, awake, alert, responding to questions. HEENT: Normocephalic, atraumatic without evident scleral icterus, perioral cyanosis. Mucous membranes are moist. NECK: Soft and supple without masses. No evidence of jugular venous distention or carotid bruits. CHEST: Clear to auscultation and percussion bilaterally. HEART: Regular rate and rhythm, S1-S2, no added sounds. ABDOMEN: Soft, nontender, nondistended without palpable hepatosplenomegaly. Note is made of a gastrostomy tube as well as a left subclavian tunneled hemodialysis catheter. EXTREMITIES: Without clubbing, cyanosis or edema. SKIN: Without rashes. NEUROLOGIC: Grossly intact. Medications Medications Current Medications Diagnostic Test (Pha) (Accu-Chek) 1 ea 02 XX ; Start 07/23/18 at 02:00 Insulin Aspart (Novolog Insulin Pen) NOVOLOG *MODERATE* ALGORITHM WITH MEALS BEDTIME SC ; Start 07/22/18 at 23:30 Miscellaneous Information 1 ea NOTE XX ; Start 07/22/18 at 23:45 Glucose (Glutose) 15 gm Q15M PRN PO DECREASED GLUCOSE; Start 07/22/18 at 23:45 Glucose (Glutose) 22.5 gm Q15M PRN PO DECREASED GLUCOSE; Start 07/22/18 at 2 3:45 Dextrose (D50w Syringe) 25 ml Q15M PRN IV DECREASED GLUCOSE Last administered on 07/23/18at 12:28; Admin Dose 25 ML; Start 07/22/18 at 23:45 Dextrose (D50w Syringe) 50 ml Q15M PRN IV DECREASED GLUCOSE; Start 07/22/18 at 23:45 Glucagon (Glucagen) 1 mg Q15M PRN IM DECREASED GLUCOSE; Start 07/22/18 at 23:45 Glucose (Glutose) 15 gm Q15M PRN BUCCAL DECREASED GLUCOSE; Start 07/22/18 at 23:45 Acetaminophen (Tylenol Liquid) 650 mg Q6 PRN GTB ELEVATED TEMPERATURE; Start 07/23/18 at 00:30 Amiodarone HCl (Cordarone) 200 mg BID GTB Last administered on 07/24/18 10:10; Admin Dose 200 MG; Start 07/23/18 at 09:00 Apixaban (Eliquis) 5 mg BID PO Last administered on 07/24/18 10:09; Admin Dose 5 MG; Start 07/23/18 at 09:00 Atorvastatin Calcium (Lipitor) 40 mg QHS GTB Last administered on 07/23/18 20:48; Admin Dose 40 MG; Start 07/23/18 at 21:00 Lansoprazole (Prevacid) 30 mg DAILY GTB Last administered on 07/24/18 10:09; Admin Dose 30 MG; Start 07/23/18 at 09:00 Levalbuterol (Xopenex Neb) 1.25 mg Q2H RESP THERAPY PRN HHN WHEEZING AND SOB; Start 07/23/18 at 00:30 Magnesium Oxide (Mag-Ox 400) 400 mg TID PO Last administered on 07/24/18 10:10; Admin Dose 400 MG; Start 07/23/18 at 09:00 Sucralfate (Carafate Susp) 1 gm AC MEALS GTB Last administered on 07/24/18 11:42; Admin Dose 1 GM; Start 07/23/18 at 07:25 Tamsulosin HCl (Flomax) 0.4 mg HS PO Last administered on 07/23/18 20:48; Admin Dose 0.4 MG; Start 07/23/18 at 21:00 Lactobacillus Acidophilus/ Rhamnosus (Culturelle) 1 cap BID PO Last administered on 07/24/18 10:09; Admin Dose 1 CAP; Start 07/23/18 at 09:00 Ipratropium [place] (Atrovent 0.02% (Neb)) 0.5 mg Q6H RESP THERAPY HHN Last administered on 07/24/18 08:10; Admin Dose 0.5 MG; Start 07/23/18 at 02:00 Levalbuterol (Xopenex Neb) 1.25 mg Q6H RESP THERAPY HHN Last administered on 07/24/18at 08:10; Admin Dose 1.25 MG; Start 07/23/18 at 02:00 Levofloxacin/ Dextrose 100 ml @ 100 mls/hr Q24H IVPB Last administered on 07/24/18at 10:11; Admin Dose 100 MLS/HR; Start 07/23/18 at 09:00 Furosemide (Lasix) 20 mg BID DIURETICS IV Last administered on 07/24/18at 05:42; Admin Dose 20 MG; Start 07/23/18 at 18:00 Dextrose/Sodium Chloride 1,000 ml @ 50 mls/hr Q20H IV Last administered on 07/24/18at 01:24; Admin Dose 50 MLS/HR; Start 07/24/18 at 01:00 LULU MUNOZ MD Jul 24, 2018 12:41
--- NOTE | 2018-07-24 12:55 | NUR ---
PERM CATH REMOVAL- DR. DICKSON CONTACTED BY THIS NURSE TO REMOVE PERM CATH PER DR. NELSON REQUEST. DR. DICKSON PLACED PERM CATH ON 05/15/18. PER DR. MUNOZ PT NO LONGER NEEDS HEMO DIALYSIS. DR DICKSON NOTIFIED OF PERM CATH REMOVAL REQUEST BY DR MUNOZ. DR DICKSON TO PERFORM BEDSIDE PERM CATH REMOVAL. PT'S PRIMARY NURSE GHAZAL BAIN NOTIFIED.
[2018-07-24] MEDS ORDERED: LIDOCAINE 2%/EPI (MDV) 20ML INJ INJ STA (12:58)
[2018-07-24] MEDS ORDERED: LIDOCAINE 1%/EPI 1:200,000 10 ML VIAL IM ONE (13:00)
[2018-07-24] MEDS ORDERED: LIDOCAINE 1% (MDV) 20 ML INJ IM ONE (13:30)
--- NOTE | 2018-07-24 13:38 | CONS ---
Date/Time of Note Date/Time of Note DATE: 07/24/18 TIME: 13:29 Assessment/Plan Assessment/Plan Hospital Course 1. Renal failure, status post HD no longer requiring dialysis catheter -DC dialysis catheter> cx tip 2. Leukocytosis: 2/2 etiology; no infectious symptoms; cultures NGTD -We will send dialysis catheter tip for culture -Follow cultures 3. Hypoxemic respiratory failure: CHF versus pneumonia; chest x-ray: Bilateral interstitial opacities, possible pulmonary edema, bilateral pleural effusions -Diuresis -Fluid management -Pulmonary toilet 4. Hypochromic anemia: No overt bleed noted -Monitor and transfuse as needed 5. Hypoalbuminemia: -Nutrition optimization -Treat underlying infection 6. Atrial fibrillation: Currently on Eliquis -Rate control 7. Altered mental status: -Limit disorienting drugs -Treat underlying infections -Supportive Thank you. Patient seen and examined in collaboration with Dr. Israel Cespedes. Result Diagram: 07/24/18 0511 07/24/18 0511 Results 24hrs Laboratory Tests Test 07/23/18 13:33 07/23/18 17:28 07/23/18 20:43 07/24/18 02:49 Bedside Glucose 118 72 74 83 Test 07/24/18 05:11 07/24/18 08:12 07/24/18 11:38 White Blood Count 9.5 # Red Blood Count 3.50 L Hemoglobin 10.1 L Hematocrit 32.5 L Mean Corpuscular Volume 92.9 Mean Corpuscular 28.9 L Hemoglobin Mean Corpuscular 31.1 L Hemoglobin Concent Red Cell Distribution 17.2 H Width Platelet Count 215 Mean Platelet Volume 9.5 Immature Granulocytes % 1.200 H Neutrophils % 80.1 H Lymphocytes % 6.2 L Monocytes % 10.3 Eosinophils % 1.6 Basophils % 0.6 Nucleated Red Blood 0.0 Cells % Immature Granulocytes # 0.110 H Neutrophils # 7.6 H Lymphocytes # 0.6 L Monocytes # 1.0 H Eosinophils # 0.2 Basophils # 0.1 Nucleated Red Blood 0.0 Cells # Prothrombin Time 18.1 H Prothrombin Time Ratio 1.4 INR International 1.49 Normalized Ratio Activated 35.6 H Partial Thromboplast Time Sodium Level 136 Potassium Level 4.2 Chloride Level 104 Carbon Dioxide Level 27 Anion Gap 5 Blood Urea Nitrogen 12 Creatinine 1.18 Est Glomerular Filtrat Rate mL/min Glucose Level 70 Calcium Level 9.4 Total Bilirubin 0.1 L Direct Bilirubin 0.00 Indirect Bilirubin 0.1 Aspartate Amino 25 Transf (AST/SGOT) Alanine 43 Aminotransferase (ALT/SG PT) Alkaline Phosphatase 81 Total Protein 4.6 L Albumin 2.4 L Globulin 2.20 Albumin/Globulin Ratio 1.09 Bedside Glucose 79 89 Consultation Date/Type/Reason Admit Date/Time Jul 22, 2018 at 20:14 Date of Consultation: Jul 24, 2018 Type of Consult surgical Reason for Consultation permacath Requesting Provider: JOSEPH RIBEIRO MD Hx of Present Illness Lewis Stafford is a 77 yo man with past medical history of CHF, A. fib, acute renal failure status post dialysis, no longer requiring HD, BPH, major depression who was sent from subacute facility due to increasing WBC. Reportedly, outpatient labs showed leukocytosis with WBC of 15.6. Associated symptoms include mental status changes as well as hallucinations. No reports of fevers, labored breathing, congested cough, vomiting, diarrhea, change in bowel or bladder habits, skin changes or rash, seizure activity. General surgery was asked for discontinuation of dialysis catheter. 12 point review of systems was reviewed and is negative except for as stated in HPI. Past Medical History As above Medications Current Medications Diagnostic Test (Pha) (Accu-Chek) 1 ea 02 XX ; Start 07/23/18 at 02:00 Insulin Aspart (Novolog Insulin Pen) NOVOLOG *MODERATE* ALGORITHM WITH MEALS BEDTIME SC ; Start 07/22/18 at 23:30 Miscellaneous Information 1 ea NOTE XX ; Start 07/22/18 at 23:45 Glucose (Glutose) 15 gm Q15M PRN PO DECREASED GLUCOSE; Start 07/22/18 at 23:45 Glucose (Glutose) 22.5 gm Q15M PRN PO DECREASED GLUCOSE; Start 07/22/18 at 23:45 Dextrose (D50w Syringe) 25 ml Q15M PRN IV DECREASED GLUCOSE Last administered on 07/23/18at 12:28; Admin Dose 25 ML; Start 07/22/18 at 23:45 Dextrose (D50w Syringe) 50 ml Q15M PRN IV DECREASED GLUCOSE; Start 07/22/18 at 23:45 Glucagon (Glucagen) 1 mg Q15M PRN IM DECREASED GLUCOSE; Start 12/31/18 at 23:45 Glucose (Glutose) 15 gm Q15M PRN BUCCAL DECREASED GLUCOSE; Start 07/22/18 at 23:45 Acetaminophen (Tylenol Liquid) 650 mg Q6 PRN GTB ELEVATED TEMPERATURE; Start 07/23/18 at 00:30 Amiodarone HCl (Cordarone) 200 mg BID GTB Last administered on 07/24/18 10:10; Admin Dose 200 MG; Start 07/23/18 at 09:00 Apixaban (Eliquis) 5 mg BID PO Last administered on 07/24/18 10:09; Admin Dose 5 MG; Start 07/23/18 at 09:00 Atorvastatin Calcium (Lipitor) 40 mg QHS GTB Last administered on 07/23/18 20 :48; Admin Dose 40 MG; Start 07/23/18 at 21:00 Lansoprazole (Prevacid) 30 mg DAILY GTB Last administered on 07/24/18 10:09; Admin Dose 30 MG; Start 07/23/18 at 09:00 Levalbuterol (Xopenex Neb) 1.25 mg Q2H RESP THERAPY PRN HHN WHEEZING AND SOB; Start 07/23/18 at 00:30 Magnesium Oxide (Mag-Ox 400) 400 mg TID PO Last administered on 07/24/18 10:10; Admin Dose 400 MG; Start 07/23/18 at 09:00 Sucralfate (Carafate Susp) 1 gm AC MEALS GTB Last administered on 07/24/18 11:42; Admin Dose 1 GM; Start 07/23/18 at 07:25 Tamsulosin HCl (Flomax) 0.4 mg HS PO Last administered on 07/23/18 20:48; Admin Dose 0.4 MG; Start 07/23/18 at 21:00 Lactobacillus Acidophilus/ Rhamnosus (Culturelle) 1 cap BID PO Last administered on 07/24/18 10:09; Admin Dose 1 CAP; Start 07/23/18 at 09:00 Ipratropium [place] (Atrovent 0.02% (Neb)) 0.5 mg Q6H RESP THERAPY HHN Last administered on 07/24/18 08:10; Admin Dose 0.5 MG; Start 07/23/18 at 02:00 Levalbuterol (Xopenex Neb) 1.25 mg Q6H RESP THERAPY HHN Last administered on 07/24/18at 08:10; Admin Dose 1.25 MG; Start 07/23/18 at 02:00 Levofloxacin/ Dextrose 100 ml @ 100 mls/hr Q24H IVPB Last administered on 07/24/18at 10:11; Admin Dose 100 MLS/HR; Start 07/23/18 at 09:00 Furosemide (Lasix) 20 mg BID DIURETICS IV Last administered on 07/24/18at 05:42; Admin Dose 20 MG; Start 07/23/18 at 18:00 Dextrose/Sodium Chloride 1,000 ml @ 50 mls/hr Q20H IV Last administered on 07/24/18at 01:24; Admin Dose 50 MLS/HR; Start 07/24/18 at 01:00 Lidocaine (Xylocaine 1% (Mdv) 20 ml) 20 ml ONCE ONCE IM ; Start 07/24/18 at 13:30; Stop 07/24/18 at 13:31 Allergies: Coded Allergies: dronedarone (Unverified Allergy, Unknown, 05/15/18) naproxen (Unverified Allergy, Unknown, 05/15/18) Past Surgical History As above Family History Significant Family History: no pertinent family hx Social History Smoking Status: Former smoker Exam/Review of Systems Vital Signs Vitals Vital Signs Date Temp Pulse Resp B/P (MAP) Pulse Ox O2 O2 Flow FiO2 Time Delivery Rate 07/24/18 83 12:34 07/24/18 20 96 Aerosol 5.0 28 11:57 07/24/18 97.4 102/57 11:11 (72) Intake and Output 07/23/18 07/23/18 07/24/18 1515:00 23:00 07:00 IntakeIntake Total 200 ml OutputOutput Total 550 ml BalanceBalance 200 ml -550 ml Exam Constitutional: alert, oriented Psych: nl mood/affect; No anxiety Head: normocephalic, atraumatic Eyes: nl conjunctiva, EOMI, nl lids, nl sclera ENMT: nl external ears & nose, nl lips & teeth, mucosa pink and moist Neck: supple, non-tender, other (tracheostomy) Respiratory: normal air movement, other (left chest permacath) Cardiovascular: regular rate and rhythm, nl pulses Gastrointestinal: soft, non-tender, other (gtube); No distended Musculoskeletal: nl extremities to inspection, nl gait and stance Extremities: normal pulses Neurological: nl mental status, nl speech, nl strength Skin: nl turgor; No rash or lesions Medications Medications Current Medications Diagnostic Test (Pha) (Accu-Chek) 1 ea 02 XX ; Start 07/23/18 at 02:00 Insulin Aspart (Novolog Insulin Pen) NOVOLOG *MODERATE* ALGORITHM WITH MEALS BEDTIME SC ; Start 07/22/18 at 23:30 Miscellaneous Information 1 ea NOTE XX ; Start 07/22/18 at 23:45 Glucose (Glutose) 15 gm Q15M PRN PO DECREASED GLUCOSE; Start 07/22/18 at 23:45 Glucose (Glutose) 22.5 gm Q15M PRN PO DECREASED GLUCOSE; Start 07/22/18 at 23:45 Dextrose (D50w Syringe) 25 ml Q15M PRN IV DECREASED GLUCOSE Last administered on 07/23/18at 12:28; Admin Dose 25 ML; Start 07/22/18 at 23:45 Dextrose (D50w Syringe) 50 ml Q15M PRN IV DECREASED GLUCOSE; Start 07/22/18 at 23:45 Glucagon (Glucagen) 1 mg Q15M PRN IM DECREASED GLUCOSE; Start 07/22/18 at 23:45 Glucose (Glutose) 15 gm Q15M PRN BUCCAL DECREASED GLUCOSE; Start 07/22/18 at 23:45 Acetaminophen (Tylenol Liquid) 650 mg Q6 PRN GTB ELEVATED TEMPERATURE; Start 07/23/18 at 00:30 Amiodarone HCl (Cordarone) 200 mg BID GTB Last administered on 07/24/18at 10:10; Admin Dose 200 MG; Start 07/23/18 at 09:00 Apixaban (Eliquis) 5 mg BID PO Last administered on 07/24/18 10:09; Admin Dose 5 MG; Start 07/23/18 at 09:00 Atorvastatin Calcium (Lipitor) 40 mg QHS GTB Last administered on 07/23/18at 20:48; Admin Dose 40 MG; Start 07/23/18 at 21:00 Lansoprazole (Prevacid) 30 mg DAILY GTB Last administered on 07/24/18at 10:09; Admin Dose 30 MG; Start 07/23/18 at 09:00 Levalbuterol (Xopenex Neb) 1.25 mg Q2H RESP THERAPY PRN HHN WHEEZING AND SOB; Start 07/23/18 at 00:30 Magnesium Oxide (Mag-Ox 400) 400 mg TID PO Last administered on 07/24/18 10:10; Admin Dose 400 MG; Start 07/23/18 at 09:00 Sucralfate (Carafate Susp) 1 gm AC MEALS GTB Last administered on 07/24/18 11:42; Admin Dose 1 GM; Start 07/23/18 at 07:25 Tamsulosin HCl (Flomax) 0.4 mg HS PO Last administered on 07/23/18 20:48; Admin Dose 0.4 MG; Start 07/23/18 at 21:00 Lactobacillus Acidophilus/ Rhamnosus (Culturelle) 1 cap BID PO Last administered on 07/24/18 10:09; Admin Dose 1 CAP; Start 07/23/18 at 09:00 Ipratropium [place] (Atrovent 0.02% (Neb)) 0.5 mg Q6H RESP THERAPY HHN Last administered on 07/24/18 08:10; Admin Dose 0.5 MG; Start 07/23/18 at 02:00 Levalbuterol (Xopenex Neb) 1.25 mg Q6H RESP THERAPY HHN Last administered on 07/24/18 08:10; Admin Dose 1.25 MG; Start 07/23/18 at 02:00 Levofloxacin/ Dextrose 100 ml @ 100 mls/hr Q24H IVPB Last administered on 07/24/18 10:11; Admin Dose 100 MLS/HR; Start 07/23/18 at 09:00 Furosemide (Lasix) 20 mg BID DIURETICS IV Last administered on 07/24/18 05:42; Admin Dose 20 MG; Start 07/23/18 at 18:00 Dextrose/Sodium Chloride 1,000 ml @ 50 mls/hr Q20H IV Last administered on 07/24/18 01:24; Admin Dose 50 MLS/HR; Start 07/24/18 at 01:00 Lidocaine (Xylocaine 1% (Mdv) 20 ml) 20 ml ONCE ONCE IM ; Start 07/24/18 at 13:30; Stop 07/24/18 at 13:31 TEE AMATO NP Jul 24, 2018 13:38
[2018-07-24] MEDS: TAMSULOSIN (SR) 0.4 MG CAP PO SCH (20:31)
[2018-07-24] MEDS: ATORVASTATIN 40 MG TAB GTB SCH (20:31)
--- NOTE | 2018-07-24 23:33 | OPR ---
Date/Time of Note Date/Time of Note DATE: 07/24/18 TIME: 22:52 Operative Report Procedure Date: Jul 24, 2018 Preoperative Diagnosis Resolved need for dialysis Postoperative Diagnosis Resolved need for dialysis Operation/Procedure Performed Explantation of permacath Surgeon see signature line Batch Operator none Anesthesia Type: other Estimated Blood Loss: none Transfusion none Specimen permacath tip Grafts/Implants none Complications none Pt Condition Post Procedure: stable Procedure Description Area was prepped and draped in sterile fashion. Using blunt dissection the cuff was from the subcutaneous tissue. The line was removed and pressure applied at IJ site. Complete hemostasis was obtained. Dressing was applied to the site. Patient tolerated procedure well. TEE AMATO NP Jul 24, 2018 23:02
[2018-07-25] VITALS (9 sets, daily range): BP systolic 88–110; BP diastolic 56–70; PULSE 84–94; RESP 18–20
[2018-07-25] MEDS: IPRATROPIUM (NEB) 0.5 MG/2.5 ML AMP HHN SCH ×4 (01:35→14:09)
[2018-07-25] MEDS: ACCU-CHEK XX SCH (01:36)
[2018-07-25] MEDS: LEVALBUTEROL (NEB) 1.25 MG/0.5 ML AMP HHN SCH ×3 (01:38→14:09)
[2018-07-25] MEDS: FUROSEMIDE 20 MG INJ IV SCH (06:16)
[2018-07-25] MEDS: INSULIN ASPART [NOVOLOG] 3 ML PEN SC SCH (07:55)
[2018-07-25] MEDS: SUCRALFATE (100 MG/ML) 10ML CUP GTB SCH ×2 (08:08→12:02)
--- NOTE | 2018-07-25 08:31 | NUR ---
PATIENT'S M.[address] MUNOZ
[2018-07-25] MEDS ORDERED: MAGNESIUM SULFATE 2 GM/50 ML 50 ML IVPB ONE (09:30)
[2018-07-25] MEDS: LEVOFLOXACIN 500MG/D5W (PMX) 100 ML IVPB SCH (09:54)
[2018-07-25] MEDS: MAGNESIUM OXIDE 400 MG TAB PO SCH ×2 (09:55→12:02)
[2018-07-25] MEDS: LACTOBACILLUS RHAMNOSUS CAP PO SCH (09:55)
[2018-07-25] MEDS: AMIODARONE 200 MG TAB GTB SCH (09:55)
[2018-07-25] MEDS: APIXABAN 5 MG TABLET PO SCH (09:55)
[2018-07-25] MEDS: LANSOPRAZOLE 30 MG CAP GTB SCH (09:55)
--- NOTE | 2018-07-25 10:09 | PN ---
Date/Time of Note Date/Time of Note DATE: 07/25/18 TIME: 10:01 Assessment/Plan Lines/Catheters IV Catheter Type (from [facility]): Saline Lock Hernandez in Place (from [facility]): No Assessment/Plan Chief Complaint/Hosp Course 1. Renal failure, status post HD no longer requiring dialysis catheter; s/p explantation of HD / -cath tip cx pending -monitor site for bleeding 2. Leukocytosis: 2/2 etiology; no infectious symptoms; cultures NGTD -Follow cultures 3. Hypoxemic respiratory failure: CHF versus pneumonia; chest x-ray: Bilateral interstitial opacities, possible pulmonary edema, bilateral pleural effusions -Diuresis -Fluid management -Pulmonary toilet 4. Hypochromic anemia: No overt bleed noted -Monitor and transfuse as needed 5. Hypoalbuminemia: -Nutrition optimization -Treat underlying infection 6. Atrial fibrillation: Currently on Eliquis -Rate control 7. Altered mental status: -Limit disorienting drugs -Treat underlying infections -Supportive Thank you. Patient seen and examined in collaboration with Dr. Israel Cespedes. Subjective 24 Hr Interval Summary Feels well. No acute bleed noted from previous dialysis site. No fevers, chills, sob, congested cough, cp, palpitations, kwok, dizziness, n/v/d/dysuria. Exam/Review of Systems Vital Signs Vitals Vital Signs Date Temp Pulse Resp B/P (MAP) Pulse Ox O2 O2 Flow FiO2 Time Delivery Rate 07/25/18 89 08:44 07/25/18 16 Aerosol 5.0 28 08:36 T Tube 07/25/18 98.0 102/70 94 07:36 (81) Intake and Output 07/24/18 07/24/18 07/25/18 1515:00 23:00 07:00 IntakeIntake Total 300 ml 600 ml 120 ml OutputOutput Total 650 ml BalanceBalance 300 ml 600 ml -530 ml Exam Free Text/Dictation Constitutional: alert, oriented Psych: nl mood/affect; No anxiety Head: normocephalic, atraumatic Eyes: nl conjunctiva, EOMI, nl lids, nl sclera ENMT: nl external ears & nose, nl lips & teeth, mucosa pink and moist Neck: supple, non-tender, other (tracheostomy) Respiratory: normal air movement, other (left chest- no bleeding noted) Cardiovascular: regular rate and rhythm, nl pulses Gastrointestinal: soft, non-tender, other (gtube); No distended Musculoskeletal: nl extremities to inspection, nl gait and stance Extremities: normal pulses Neurological: nl mental status, nl speech, nl strength Skin: nl turgor; No rash or lesions Results Result Diagram: 07/24/18 0511 07/25/18 0538 TEE AMATO NP Jul 25, 2018 10:09
--- NOTE | 2018-07-25 10:21 | NUR ---
Dysphagia f/u. Patient participated in dysphagia therapy with trials of ice chips, and thin liquids by tsp and completed oropharyngeal strengthening exercises. Provided verbal education to patient and RN regarding diet recommendations from evaluation, silent aspiration, aspiration precautions, aspiration risk, possible repeat MBS, oral gratification. Verbalized comprehension. Patient continues to tolerate ice chips and thin liquids without overt s/s aspiration, however remains high aspiration risk and cannot r/o silent aspiration. Demonstrated reduced coordination of breath and swallow with thin liquids. Repeat swallows with all trials, suggestive of pharyngeal residue/ weakness. Verbal prompting and education provided to patient regarding use of effortful swallow. Demonstrated comprehension and implementation. Participated in Mahi Maneuver x12 with increased time between trials and liquid wash every 3-4 trials. Patient unable to successfully initiate swallow on additional trials, therefore exercise was discontinued. Recommendations: NPO with ice chips/ thin water for oral gratification Meds via PEG RD consult for tube feedings Oral care and aspiration precautions ST to f/u
--- NOTE | 2018-07-25 10:57 | NUR ---
NUTRITION NOTE: Consult received. Pt was re-evaluated by TODDLER NANNY 07/25. Per TODDLER NANNY notes, pt remains at high risk of aspiration, recommends to continue NPO, consider alternative form of nutrition. Noted pt has a Gtube, functional, recently used for meds. Currently on D5-1/2NS at 50 ml/hr. BG's stable. Continue to monitor. Pt noted with stage 2 p/u on sacrococcyx. Increased estimated nutritional needs along with micronutrient needs to promote wound healing. TF RECOMMENDATIONS: 1. Recommend TF via PEG: Fibersource HN with goal 65 ml/hr. Start at 20 ml/hr, advance by 10 ml every 4 hours as tolerated to goal 65 ml/hr. 2. If supplemental IVF is discontinued, suggest free water flush 120 ml every 4 hours. 3. Rec to add daily MVI and Vit C therapy for wound healing.
--- NOTE | 2018-07-25 11:04 | NUR ---
UPDATED NUTRITION NOTE: Consult received. Pt was re-evaluated by AUTOMAT CAR ATTENDANT 07/25. Per AUTOMAT CAR ATTENDANT notes, pt remains at high risk of aspiration, recommends to continue NPO, consider alternative form of nutrition. Noted pt has a Gtube, functional, recently used for meds. Currently on D5-1/2NS at 50 ml/hr. BG's stable. Continue to monitor. Pt noted with stage 2 p/u on sacrococcyx. Increased estimated nutritional needs along with micronutrient needs to promote wound healing. TF RECOMMENDATIONS: 1. Recommend TF via PEG: Fibersource HN with goal 65 ml/hr. Start at 20 ml/hr, advance by 10 ml every 4 hours as tolerated to goal 65 ml/hr. 2. Free water flush per MD. Noted pt on lasix. 3. Rec to add daily MVI and Vit C therapy for wound healing.
--- NOTE | 2018-07-25 11:17 | NUR ---
@1100 Started G tube feeding with fiber source @20ML/HR and water flush 100ML/4HR by pit shovel operator recommended.
[2018-07-25] MEDS ORDERED: INSULIN ASPART [NOVOLOG] 3 ML PEN SC SCH (12:00)
--- NOTE | 2018-07-25 12:05 | NUR ---
G TUBE FEEDING IS TOLERABLE AND INCREASED FEEDING RATE TO 35 ML/HR.
--- NOTE | 2018-07-25 13:48 | PN ---
Date/Time of Note Date/Time of Note DATE: 07/25/18 TIME: 13:48 Assessment/Plan VTE Prophylaxis Risk score (from Ns)>0 risk: 6 SCD applied (from Ns): Yes Pharmacological prophylaxis: apixaban Lines/Catheters IV Catheter Type (from Nrsg): Saline Lock Urinary Cath still in place: No Assessment/Plan Assessment/Plan 1. acute hypoxemic respiratory faliure possible due to PNA 2. AMS due to PNA and hypoxemia 3. Atrial fibrillation rate controlled 4. Leucocytosis 5. Probable Acinetobacter infection 6. 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 BPH on Flomax Plan: IV abx levaquin to cover for PNA- will change to PO 500mg daily x 7 days upon discharge Rate control with Amiodarone, eliquis for anticoagulation s/p removal of HD catheter , pt failed swallow study persistently - so we will continue G tube feeding d/c back to SNF today, outpatient speech follow up to reassess swalllowing and will decide for furher plan about removal of g tube will follow up Result Diagram: 07/24/18 0511 07/25/18 0538 Results 24hrs Laboratory Tests Test 07/24/18 18:02 07/24/18 18:49 07/24/18 20:55 07/25/18 05:38 Bedside Glucose 69 L 96 96 Prothrombin Time 17.4 H Prothrombin Time Ratio 1.4 INR International 1.41 Normalized Ratio Activated 37.9 H Partial Thromboplast Time Sodium Level 136 Potassium Level 4.0 Chloride Level 99 Carbon Dioxide Level 31 Anion Gap 6 Blood Urea Nitrogen 12 Creatinine 1.12 Est Glomerular Filtrat Rate mL/min Glucose Level 84 Calcium Level 9.3 Magnesium Level 1.4 L Free Thyroxine Index 2.86 Thyroxine (T4) 7.0 Triiodothyronine (T3) 40.8 H Uptake Test 07/25/18 08:09 07/25/18 12:00 Bedside Glucose 87 88 Exam/Review of Systems Vital Signs Vitals Vital Signs Date Temp Pulse Resp B/P (MAP) Pulse Ox O2 O2 Flow FiO2 Time Delivery Rate 07/25/18 94 12:00 07/25/18 98.0 18 88/56 (67) 95 11:17 07/25/18 Aerosol 5.0 28 08:36 T Tube Intake and Output 07/24/18 07/24/18 07/25/18 1515:00 23:00 07:00 IntakeIntake Total 300 ml 600 ml 120 ml OutputOutput Total 650 ml BalanceBalance 300 ml 600 ml -530 ml Exam GENERAL: Pleasant man, tracheostomy in situ, awake, alert, responding to ques tions. HEENT: Normocephalic, atraumatic without evident scleral icterus, perioral cyanosis. Mucous membranes are moist. NECK: Soft and supple without masses. No evidence of jugular venous distention or carotid bruits. CHEST: Clear to auscultation and percussion bilaterally. HEART: Regular rate and rhythm, S1-S2, no added sounds. ABDOMEN: Soft, nontender, nondistended without palpable hepatosplenomegaly. Note is made of a gastrostomy tube as well as a left subclavian tunneled hemodialysis catheter. EXTREMITIES: Without clubbing, cyanosis or edema. SKIN: Without rashes. NEUROLOGIC: Grossly intact. Medications Medications Current Medications Diagnostic Test (Pha) (Accu-Chek) 1 ea 02 XX ; Start 07/23/18 at 02:00 Miscellaneous Information 1 ea NOTE XX Last administered on 07/24/18at 18:03; Admin Dose 1 EA; Start 07/22/18 at 23:45 Glucose (Glutose) 15 gm Q15M PRN PO DECREASED GLUCOSE; Start 07/22/18 at 23:45 Glucose (Glutose) 22.5 gm Q15M PRN PO DECREASED GLUCOSE; Start 07/22/18 at 23:45 Dextrose (D50w Syringe) 25 ml Q15M PRN IV DECREASED GLUCOSE Last administered on 07/23/18at 12:28; Admin Dose 25 ML; Start 07/22/18 at 23:45 Dextrose (D50w Syringe) 50 ml Q15M PRN IV DECREASED GLUCOSE; Start 07/22/18 at 23:45 Glucagon (Glucagen) 1 mg Q15M PRN IM DECREASED GLUCOSE; Start 07/22/18 at 23:45 Glucose (Glutose) 15 gm Q15M PRN BUCCAL DECREASED GLUCOSE; Start 07/22/18 at 23:45 Acetaminophen (Tylenol Liquid) 650 mg Q6 PRN GTB ELEVATED TEMPERATURE; Start 07/23/18 at 00:30 Amiodarone HCl (Cordarone) 200 mg BID GTB Last administered on 07/25/18at 09:55; Admin Dose 200 MG; Start 07/23/18 at 09:00 Apixaban (Eliquis) 5 mg BID PO Last administered on 07/25/18 09:55; Admin Dose 5 MG; Start 07/23/18 at 09:00 Atorvastatin Calcium (Lipitor) 40 mg QHS GTB Last administered on 07/24/18 20:31; Admin Dose 40 MG; Start 07/23/18 at 21:00 Lansoprazole (Prevacid) 30 mg DAILY GTB Last administered on 07/25/18 09:55; Admin Dose 30 MG; Start 07/23/18 at 09:00 Levalbuterol (Xopenex Neb) 1.25 mg Q2H RESP THERAPY PRN HHN WHEEZING AND SOB; Start 07/23/18 at 00:30 Magnesium Oxide (Mag-Ox 400) 400 mg TID PO Last administered on 07/25/18 12:02; Admin Dose 400 MG; Start 07/23/18 at 09:00 Sucralfate (Carafate Susp) 1 gm AC MEALS GTB Last administered on 07/25/18 12:02; Admin Dose 1 GM; Start 07/23/18 at 07:25 Tamsulosin HCl (Flomax) 0.4 mg HS PO Last administered on 07/24/18 20:31; Admin Dose 0.4 MG; Start 07/23/18 at 21:00 Lactobacillus Acidophilus/ Rhamnosus (Culturelle) 1 cap BID PO Last administered on 07/25/18 09:55; Admin Dose 1 CAP; Start 07/23/18 at 09:00 Ipratropium [place] (Atrovent 0.02% (Neb)) 0.5 mg Q6H RESP THERAPY HHN Last administered on 07/25/18 08:34; Admin Dose 0.5 MG; Start 07/23/18 at 02:00 Levalbuterol (Xopenex Neb) 1.25 mg Q6H RESP THERAPY HHN Last administered on 07/25/18 08:34; Admin Dose 1.25 MG; Start 07/23/18 at 02:00 Levofloxacin/ Dextrose 100 ml @ 100 mls/hr Q24H IVPB Last administered on 07/25/18 09:54; Admin Dose 100 MLS/HR; Start 07/23/18 at 09:00 Furosemide (Lasix) 20 mg BID DIURETICS IV Last administered on 07/25/18at 06:16; Admin Dose 20 MG; Start 07/23/18 at 18:00 Dextrose/Sodium Chloride 1,000 ml @ 50 mls/hr Q20H IV Last administered on 07/24/18at 20:39; Admin Dose 50 MLS/HR; Start 07/24/18 at 01:00 Insulin Aspart (Novolog Insulin Pen) NOVOLOG *MODERATE* ALGORITHM Q6 SC ; Start 07/25/18 at 12:00 LULU MUNOZ MD Jul 25, 2018 13:48
--- NOTE | 2018-07-25 13:49 | PDOCDIS ---
Discharge Instructions CONDITION [id number] Patient Condition: [id number] Good HOME CARE INSTRUCTIONS: [id number] Special Diet: [id number] G tube feeding ACTIVITY: [id number] Activity Restrictions: [id number] Slowly Increase Activity Rest between Activity Avoid heavy lifting Avoid Heavy Housework FOLLOW UP/APPOINTMENTS Follow-up Plan Follow up with Physician at SNF> Follow up with speech therapy at SNF for further swallowing assessment- if pt pass swallow then plan is to remove G tube as outpatient LULU MUNOZ MD Jul 25, 2018 13:49
[2018-07-25] MEDS ORDERED: LEVO500T10 PO (13:50)
--- NOTE | 2018-07-25 18:43 | NUR ---
DISCHARGE TO [facility] VIA AMBULANCE. PATIENT'S AWARE OF IT.DC'D HEP LOCK.
--- NOTE | 2018-07-26 14:46 | DS ---
Date/Time of Note Date/Time of Note DATE: 07/26/18 TIME: 14:46 Discharge Summary Admission/Discharge Info Admit Date/Time Jul 22, 2018 at 20:14 Discharge Date/Time Jul 25, 2018 at 18:37 Discharge Diagnosis 1. acute hypoxemic respiratory faliure possible due to PNA 2. AMS due to PNA and hypoxemia 3. Atrial fibrillation rate controlled 4. Leucocytosis 6. 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 BPH on Flomax Patient Condition: Good Consults General Surgery Dr. Israel Cespedes Procedures Removal of Permcath dialysis catheter Speech therapy swallow study and pt failed it conitnued on G tube feeding upon discharge Hx of Present Illness Mr. Stafford is referred to the emergency room at [facility] by his subacute facility for increasing white blood cell count. According to the labs which accompany the patient, he had a blood count on the morning of admission which revealed a leukocytosis to 15,600. He apparently according to the limited documentation available has been having some mental status changes and hallucinations associated with this. The patient states that he has been in the senior care for some time related to pneumonia and renal failure. Hospital Course pt was treated with IV abx for PNA and UTI- his dialysis catheter was removed . he failed swallow study so continued on G tube, He was tolerating G tube feeding and discharged to SNF with PO abx levaquin. he will need speech therpay follow up at SNF Home Meds Active Scripts Levofloxacin* (Levofloxacin*) 500 Mg Tablet, 500 MG PO DAILY, #7 TAB Prov:LULU MUNOZ MD 07/25/18 Reported Medications Tramadol HCl (Tramadol HCl) 50 Mg Tablet, 50 MG PO Q6H PRN for PAIN LEVEL 1-5, #120 TAB 07/22/18 Paroxetine Hcl* (Paxil*) 20 Mg Tablet, 20 MG PO DAILY, TAB 07/22/18 Ondansetron Hcl* (Ondansetron Hcl*) 4 Mg Tablet, 4 MG PO Q6H PRN for NAUSEA, TAB 07/22/18 Hydrocodone/Acetaminophen ([place] 5-325 Tablet) 1 Each Tablet, 2 EACH PO Q6 PRN for PAIN LEVEL 6-10, TAB 07/22/18 Magnesium Oxide* (Magnesium Oxide*) 400 Mg Tablet, 400 MG PO TID, TAB 07/22/18 Loratadine (Loratadine) 10 Mg Capsule, 10 MG PO DAILY, CAP 07/22/18 Loperamide Hcl* (Loperamide Hcl*) 2 Mg Cap, 2 MG PO, CAP 07/22/18 Lactobacillus Acidophilus* (Lactinex*) 1 Tab Chew, 1 TAB PO BID, TAB 07/22/18 Apixaban* (Eliquis*) 5 Mg Tablet, 5 MG PO BID, TAB 07/22/18 Lorazepam* (Ativan*) 0.5 Mg Tablet, 0.25 MG PO Q6 for anxiety, #60 TAB 07/22/18 Insulin Lispro (Humalog) 100 Unit/1 Ml Cartridge, 100 UNIT SQ, EA 07/22/18 Atorvastatin* (Atorvastatin*) 40 Mg Tablet, 40 MG GTB QHS, #30 TAB 05/15/18 Amiodarone Hcl* (Amiodarone Hcl*) 200 Mg Tablet, 200 MG GTB BID, #60 TAB 05/15/18 Acetaminophen* (Acetaminophen* Susp) 325 Mg/10.15 Ml Solution, 650 MG GTB Q6 PRN for ELEVATED TEMPERATURE, ML 05/15/18 Lansoprazole* (Prevacid*) 30 Mg Capsule.dr, 30 MG GTB DAILY, CAP 05/15/18 Levalbuterol Hcl* (Levalbuterol Hcl*) 1.25 Mg/0.5 Ml Vial.neb, 1.25 MG INHALATION Q2H PRN for WHEEZING AND SOB, VIAL 05/15/18 Levalbuterol Hcl* (Levalbuterol Hcl*) 1.25 Mg/0.5 Ml Vial.neb, 1.25 MG INHALATION Q6 PRN for WHEEZING AND SOB, VIAL 05/15/18 Ondansetron Hcl* (Ondansetron Hcl* Liq) 4 Mg/5 Ml Solution, 4 MG IV* Q6H PRN for NAUSEA AND/OR VOMITING, ML 05/15/18 Saccharomyces Boulardii* (Florastor*) 250 Mg Cap, 250 MG GTB BID, CAP 05/15/18 Sucralfate* (Carafate*) 1 Gm/10 Ml Susp, 1 GM GTB AC MEALS, EA 05/15/18 Tamsulosin Hcl* (Tamsulosin Hcl*) 0.4 Mg Cap.er.24h, 0.4 MG GTB HS, CAP 05/15/18 Follow-up Plan Follow up with Physician at SNF> Follow up with speech therapy at SNF for further swallowing assessment- if pt pass swallow then plan is to remove G tube as outpatient Primary Care Provider Not On Staff Doctor Time spent on discharge: > 30 minutes LULU MUNOZ MD Jul 26, 2018 14:46
== END 2018-07-25 18:37 | DRG 193 ==
LOC: E/R 16:43 → TEL 20:14
PROVIDERS: ADMIT Legal Medicine; ATTEND Legal Medicine
PROC: 05PYX3Z Removal of Infusion Device from Upper Vein, External Approach (ICD-10-PCS; principal; 2018-07-24)
DX: J18.9 Pneumonia, unspecified organism (principal); J96.01 Acute respiratory failure with hypoxia; I50.43 Acute on chronic combined systolic (congestive) and diastolic (congestive) heart failure; J96.11 Chronic respiratory failure with hypoxia; I48.91 Unspecified atrial fibrillation; I50.9 Heart failure, unspecified; E86.0 Dehydration; Z93.0 Tracheostomy status; N40.0 Benign prostatic hyperplasia without lower urinary tract symptoms; F32.9 Major depressive disorder, single episode, unspecified; Z93.1 Gastrostomy status; Z79.02 Long term (current) use of antithrombotics/antiplatelets; D64.89 Other specified anemias; E88.09 Other disorders of plasma-protein metabolism, not elsewhere classified
CPT/HCPCS: 36415; 71045; 71275; 80048; 80053; 81003; 82962; 83605; 83735; 84436; 84479; 85025; 85610; 85730; 87040; 87070; 87081; 87086; 92526; 92610; 93306; 94640; 94644; 94664; 96374; 96375; J0692; J1815; J1940; J1956; J3370; J3475; J7030; J7042; Q9967